=== PATIENT | male | born 1995 | race Caucasian/White ===

== ENCOUNTER 2021-12-31 19:34 | Emergency (ER) | payer OTHER, SELFPAY ==
[2021-12-31 19:35] VITALS: BP 128/101; PULSE 68; RESP 16; TEMP 36.6; O2SAT 98; BMI 27.8
--- NOTE | 2021-12-31 20:23 | EX.ED.UPPERE ---
HPI History of Present Illness Chief Complaint: Laceration Informant: patient and spouse/S.O. Onset/Context/Timing Onset: Hours Context: Sudden Onset Timing: Continuous Location: Laceration dorsum left thumb between the IP and MCP joint Current Severity: Mild Maximum Severity: Mild Worsened by: Laceration Relieved by: Nothing Associated Symptoms Associated Symptoms: Negative for Parasthesia, Weakness or Loss of Funtion Narrative Narrative: Patient is a [id number] male presents with laceration to the dorsal surface of his left thumb between the IP and MCP joint. He denies paresthesia, anesthesia medics. Tetanus is up-to-date. He has no other complaints. Tetanus Immunization: 5-10 years Prior similar symptoms: No Recent Illness/Hospitalization: No PFSH PFS Medical History Crohn's disease Home Medications NK 12/31/21 [History Last Taken Unknown] Allergy/AdvReac Type Severity Reaction Status Date / Time No Known Allergies Allergy Verified 12/31/21 19:35 Social History (Updated 12/31/21 @ 20:[address] Josiah Mary MD) household members: significant other Smoking Status: Never smoker substance use type: does not use ROS ROS ED Constitutional Constitutional ED: Denies chills, fever(s), subjective or sweats Integumentary Reports other Details: Laceration left thumb ; Denies Abrasions or rash Neurologic Neurologic: Denies paresthesias or weakness Hematologic/Lymphatic Hematologic/Lymphatic: Denies easy bleeding or easy bruising EXAM Physical Exam Const Vital Signs: 12/31/21 19:35 Temperature 97.9 F Temperature Source Temporal Pulse Rate 68 Respiratory Rate 16 Blood Pressure 128/101 H Blood Pressure Mean 110 Pulse Ox 98 Oxygen Delivery Method Room Air Positive well nourished and well developed General Appearance ED: well developed and NAD HEENT normocephalic and atraumatic Eyes PERRL and EOMs intact bilaterally Neck full ROM Resp normal respiratory effort Cardio regular rate and regular rhythm Neuro oriented x3, CN's II-XII intact bilaterally and moves all extremities Neuro Narrative: Median, radial and ulnar function intact. Normal two-point discrimination. Sensorium / Orientation: alert, oriented to person, oriented to place and oriented to time Psych mental status grossly normal Skin Skin Narrative: 2.0 cm laceration. Laceration linear. Capillary refill is normal. There is no subungual hematoma noted. The extensor pollicis brevis and extensor pollicis longus are functionally intact. General Skin Exam: Negative for petechiae Lesions: no lesions Rashes: no rashes Procedures Other Procedures Procedure(s): 2.0 cm laceration requiring repair. After the wound was anesthetized. The wound was explored. There was no injury to the extensor tendons. There is no neurovascular injury noted either. Patient's wound was irrigated with 200 cc of normal saline. Using 5-0 Ethilon simple interrupted sutures were placed with good cosmesis hemostasis. Discharge Plan Triage Chief Complaint: Laceration ED Provider: Josiah Mary Dx/Rx/DC Orders Clinical Impression: Laceration of skin of left thumb Instructions: ED Laceration, Hand: All Closures Prescriptions: No Action NK Primary Care Provider: Care Physician,No Primary Referrals: Mayra Willingham MD [STAFF PHYSICIAN] - 10 Day for suture removal Care Physician,No Primary [Primary Care Provider] - Activity Restrictions/Additional Instructions: 1. Keep wound clean and dry for the next 48 to 72 hours. 2. Clean wound with peroxide on a Q-tip 3 times a day then apply bacitracin ointment Disposition Disposition: Home, Self Care
[2021-12-31] MEDS: Lidocaine 1% (20 ml mdv) 20 ML Vial INFILT (20:49)
== END 2021-12-31 20:53 | disposition home or self-care (01) ==
PROVIDERS: Emergency Provider Emergency Medicine; Visit Provider Emergency Medicine
DX: S61.012A Laceration without foreign body of left thumb without damage to nail, initial encounter (principal); X58.XXXA Exposure to other specified factors, initial encounter
CPT/HCPCS: 12001; 99284